=== PATIENT | female | born 1975 | race Caucasian/White ===

== ENCOUNTER 2016-02-27 03:32 | Emergency (ER) | payer OTHER ==
[~2016-02-27] VITALS: Ht 162.6 cm; Wt 81.8 kg
[2016-02-27 03:34] VITALS: BP 101/66; PULSE 102; RESP 16; O2SAT 96
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
--- NOTE | 2016-02-27 08:09 | DRSVH ---
PROCEDURE: X-RAY RIGHT KNEE, THREE VIEWS ([id number]) INDICATIONS: injury, unable to bear weight TECHNIQUE: 3 views of the knee were acquired. COMPARISON: [facility], CR, KNEE 1 OR 2VW (RT), 03/31/2009, 10:28. FINDINGS: Bones: No fractures or dislocations. No suspicious bony lesions. Soft tissues: No joint effusion. No suspicious soft tissue calcifications. IMPRESSION: No fracture or or dislocation. Dictated by: Rob Ritchie M.D. on 02/27/2016 at 8:07 Approved by: Rob Ritchie M.D. on 02/27/2016 at 8:07
== END 2016-02-27 07:23 | disposition home or self-care (01) ==
LOC: SED 03:32
DX: S83.411A Sprain of medial collateral ligament of right knee, initial encounter (principal); T74.11XA Adult physical abuse, confirmed, initial encounter; Y07.01 Husband, perpetrator of maltreatment and neglect; Y93.89 Activity, other specified; Y92.89 Other specified places as the place of occurrence of the external cause; Y99.8 Other external cause status; M25.532 Pain in left wrist; F31.9 Bipolar disorder, unspecified; F17.200 Nicotine dependence, unspecified, uncomplicated